=== PATIENT | female | born 2005 | race Caucasian/White ===

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

== ENCOUNTER 2024-12-02 09:48 | Outpatient (CLI) | payer BC, SELFPAY | END 2024-12-02 09:49 | disposition home or self-care (01) | PROVIDERS: PCP Pediatrics; Visit Provider Physician Assistant | DX: R53.83 Other fatigue (principal) | CPT/HCPCS: 82306; 82607; 84443 ==